=== PATIENT | male | born 1990 | race Caucasian/White ===

== ENCOUNTER → 2017-05-09 | Outpatient (CLI) | payer OTHER ==
--- NOTE | 2017-05-09 13:11 | MR ---
EXAMINATION TYPE: MR lumbar spine wo con DATE OF EXAM: 05/09/2017 COMPARISON: NONE HISTORY: 26-year-old male with low back pain TECHNIQUE: Multiplanar, multisequence images of the lumbar spine were acquired. FINDINGS: While there is straightening of the normal lumbar lordosis, alignment is maintained. Vertebral body h eights are preserved. Slightly diminished marrow signal suggestive of prominent red marrow compatible with patient's young age. Conus medullaris is normal. There is premature degenerative disc disease from L3 through S1 levels with variable mild disc desicc ation and bulging discs. Disc desiccation and mild disc height loss is greatest at L4-L5 and L5-S1. These changes are superimposed on underlying mild congenital spinal canal stenosis with AP canal dime nsion of 1.1 cm. At T12-L1, no significant spinal canal or neuroforaminal stenosis. L1-L2, minimal posterior disc bulge without significant canal or foraminal stenosis. At L2-L3, no significant canal or foraminal stenosis. At L3-L4, there is a large central, left paracentral disc protrusion. This contributes to moderate sp inal canal stenosis without neuroforaminal stenosis. At L4-L5, there is central disc protrusion with tiny posterior annular fissure. Changes result in mil d to moderate spinal canal stenosis with minimal inferior neural foraminal narrowing on the right. At L5-S1, there is mild facet degenerative change and diffuse disc bulge with a superimposed broad-ba sed left intraforaminal component containing an annular fissure. While there is no significant spinal canal stenosis, changes result in mild left neuroforaminal stenosis and disc material closely approa ches and may abut the traversing left S1 nerve root. No prevertebral or paravertebral soft tissue abnormality seen. IMPRESSION: 1. Premature degenerative disc disease especially from L3 through S1 levels with the greatest disc de siccation at both L4-L5 and L5-S1. Annular fissures are present at both L4-L5 and L5-S1. 2. Changes are superimposed on congenital spinal canal narrowing. The left paracentral herniation at L3-L4 contributes to a moderate overall spinal canal stenosis. 3. There is mild to moderate overall spinal canal stenosis at L4-L5. 4. There is a broad-based left intraforaminal disc protrusion at L5-S1 at the site of annular fissure . Disc material closely approaches and may abut the traversing left S1 nerve root here. Mild left vanesa roforaminal stenosis.
== END | disposition home or self-care (01) ==
LOC: RADMRIMAIN 10:49
PROVIDERS: ATTEND Physician Assistant Medical
DX: M48.06 Spinal stenosis, lumbar region (principal); M99.73 Connective tissue and disc stenosis of intervertebral foramina of lumbar region; M51.17 Intervertebral disc disorders with radiculopathy, lumbosacral region
CPT/HCPCS: 72148

== ENCOUNTER → 2017-07-08 | Outpatient (CLI) | payer OTHER ==
[2017-07-03 14:59] VITALS: BMI 31.8
[2017-07-08 12:35] VITALS: BP 122/84; PULSE 84; RESP 18; TEMP 98.4
--- NOTE | 2017-07-08 13:14 | P.CONS ---
History of Present Illness - Reason for Consult Consult date: 07/08/17 - Chief Complaint Lower back pain - History of Present Illness This is a 27-year-old male with 1 year history of lower back pain that started with no precipitating events. The patient admits to heavy lifting and body building for the last 10 years of his life. His pain goes across his lower back more on the right side than the left side and then it radiates down both legs to the knee level but he denies any numbness or tingling in the lower extremities. He also denies any weakness or any bowel or bladder dysfunction. He has been trying to lose some weight lately. He also tried physical therapy 3 or 4 months ago which did not give her any pain relief. The patient thinks that he had some injections in his lower back when he was 18 years old. His pain gets worse with any activity especially walking and lifting he uses heat and cold pads on his back to help him with the pain and uses Motrin 800 mg as needed. He also tried Nitro and Valium for a few months and last time he took them was about 2 months ago. He lives with his parents he smokes half a pack of cigarettes a day he denies using any marijuana or any street drugs. He is unemployed at this time. He used to work in [employer]. His lumbar spine MRI showed premature degenerative disc disease especially from L3 to S1 with greatest disc desiccation at L4 5 and L5-S1 levels there is also left paracentral disc herniation at L3 4 level and left disc protrusion at L5- S1 abutting the left S1 nerve root with moderate spinal canal stenosis at L4 5 and L3 4 and L5-S1 levels. Past Medical History Past Medical History: Musculoskeletal Disorder Additional Past Medical History / Comment(s): back pain radiating down legs History of Any Multi-Drug Resistant Organisms: None Reported Past Surgical History: Appendectomy, Orthopedic Surgery Additional Past Surgical History / Comment(s): cyst removed from tailbone, finger surgery Past Anesthesia/Blood Transfusion Reactions: No Reported Reaction Past Psychological History: Anxiety Smoking Status: Current every day smoker Past Alcohol Use History: Occasional Additional Past Alcohol Use History / Comment(s): has smoked since 16 yrs old 1 ppd Past Drug Use History: None Reported - Past Family History Mother Family Medical History: No Reported History Father Family Medical History: Unable to Obtain Medications and Allergies Home Medications Medication Instructions Recorded Confirmed Type Multivitamin [Multivitamins Adult 2 tab PO DAILY 07/04/16 07/03/17 History Gummies] Allergies Allergy/AdvReac Type Severity Reaction Status Date / Time No Known Allergies Allergy Verified 07/03/17 14:54 Physical Exam Vitals: Vital Signs Temp Pulse Resp BP Pulse Ox 07/08/17 12:23 98.4 F 84 18 122/84 94 L - Psychiatric Psychiatric: A&O x's 3, appropriate affect, intact judgment & insight Neuro exam of the lower extremities showed normal muscle strength bilaterally and symmetrically absent right ankle reflex compared to the left side and normal bilateral knee reflex is. Straight leg raise test negative bilaterally facet loading test was positive on both sides. He has tenderness in the lumbar paravertebral area. There is no tenderness in the sacroiliac joints bilaterally. He has decreased range of motion of the lumbar spine to flexion with more pain with flexion than with extension. Assessment and Plan Plan: This is a 27-year-old male with lower back pain and radiation to the lower extremities down to the knees bilaterally with no paresthesia in the lower extremities and no other neurologic changes except for absent right ankle reflex. The MRI of the lumbar spine showed premature these 2 changes and moderate lumbar stenosis. The patient failed to respond to physical therapy previously. At this point I will schedule the patient to have lumbar epidural steroid injection under fluoroscopic guidance and if these injections don't help his pain then we'll plan on doing lumbar medial branch block in the future. The patient understands that it is not recommended to use opioids for his chronic nonmalignant pain especially because of his young age, and all attempts will be taken to avoid using opioids.
== END | disposition home or self-care (01) ==
LOC: PNWHC3 12:16
PROVIDERS: ATTEND Anesthesiology
DX: M48.06 Spinal stenosis, lumbar region (principal); F17.200 Nicotine dependence, unspecified, uncomplicated; F41.9 Anxiety disorder, unspecified; Z79.899 Other long term (current) drug therapy
CPT/HCPCS: 99211

== ENCOUNTER 2017-07-23 07:12 | Day surgery (SDC) | payer OTHER ==
[2017-07-20 16:52] VITALS: BMI 31.8
[~2017-07-23 07:12] MED LIST: LACTATED RINGERS 1,000 ML IV SCH
[2017-07-23 07:26] VITALS: TEMP 98.7
[2017-07-23] MEDS ORDERED: LIDOCAINE 1% 20 ML VIAL (10MG/ML) FOR IV START INTRADERMA ONE (07:42)
--- NOTE | 2017-07-23 08:36 | P.PCN ---
Date of Procedure: 07/23/17 Preoperative Diagnosis: Lumbar stenosis Lumbar degenerative disc disease Postoperative Diagnosis: Same as above Procedure(s) Performed: Lumbar epidural steroid injection under fluoroscopic guidance Anesthesia: MAC (Moderate conscious sedation with IV fentanyl and Versed) Surgeon: Elma Sharma Pathology: none sent Condition: stable Disposition: PACU Description of Procedure: The patient was seen in preoperative holding area consent was obtained then he was brought into the procedure 1 placed in prone position. Skin was prepped with Betadine 3 and draped in a sterile manner. Lidocaine 1% was used to numb the skin over the target point was at the L4-5 level in the right paramedian approach. I used 20-gauge 3-1/2 inch Touhy epidural needle with loss-of- resistance to air to identify the epidural space. There was positive loss-of- resistance to air at about 7 cm from skin ,negative aspiration for any CSF or blood ,negative paresthesia I then injected 80 mg of Kenalog +2 MLS of Marcaine 0.25% +3 MLS of preservative free normal saline to a total volume of 7 MLS in epidural space. Patient tolerated procedure well.
[2017-07-23] MEDS ORDERED: IV FLUID CONTINUATION 1,000 ML IV ONE (08:43)
--- NOTE | 2017-07-23 08:46 | FL ---
EXAMINATION TYPE: FL guided pain mgmt statistic DATE OF EXAM: 07/23/2017 COMPARISON: NONE HISTORY: Pain TECHNIQUE: Fluoroscopy. FINDINGS/IMPRESSION: Fluoroscopic guidance was provided during procedure performed by Dr. Sharma. A total of 3 seconds of fluoroscopic time was utilized during the procedure.
[2017-07-23 08:57] VITALS: BP 117/65; PULSE 72; RESP 18
== END 2017-07-23 09:08 | disposition home or self-care (01) ==
LOC: ORPAIN 07:12
PROVIDERS: ATTEND Anesthesiology
DX: M48.06 Spinal stenosis, lumbar region (principal); M51.36 Other intervertebral disc degeneration, lumbar region
CPT/HCPCS: 62323; J2250; J3301; Q9965; J3010; 99152

== ENCOUNTER 2018-07-14 00:50 | Observation (INO) | payer OTHER ==
[2018-07-14] MEDS ORDERED: ONDANSETRON 4 MG/2 ML VIAL IVP STA (01:18)
[2018-07-14] MEDS ORDERED: SODIUM CHLORIDE 0.9% 1,000 ML IV STA ×2 (01:18)
[2018-07-14] MEDS ORDERED: PANTOPRAZOLE 40 MG/10 ML VIAL IVP STA (01:19)
[2018-07-14 01:59] LABS: Basophils % (A) 0 %; Eosinophils % (A) 0 %; HCT 53.4 % (39.0-53.0); HGB 18.6 gm/dL (13.0-17.5); Lymphocytes # (A) 1.2 k/uL (1.0-4.8); Lymphocytes % (A) 9 %; MCH 31.5 pg (25.0-35.0); MCHC 34.8 g/dL (31.0-37.0); MCV 90.5 fL (80.0-100.0); Mean Platelet Volume 6.8; Monocytes # (A) 0.8 k/uL (0-1.0); Monocytes % (A) 6 %; Neutrophils # (A) 11.5 k/uL (1.3-7.7); Neutrophils % (A) 84 %; Platelet Count 339 k/uL (150-450); RDW 13.1 % (11.5-15.5); WBC 13.6 k/uL (3.8-10.6)
[2018-07-14 02:03] LABS: Albumin 5.7 g/dL (3.5-5.0); Calcium 10.5 mg/dL (8.4-10.2); Potassium 4.5 mmol/L (3.5-5.1); Total Bilirubin 0.7 mg/dL (0.2-1.3); Total Protein 10.2 g/dL (6.3-8.2)
[2018-07-14] MEDS ORDERED: SODIUM CHLORIDE 0.9% 1,000 ML IV ONE (02:23)
[2018-07-14] MEDS ORDERED: MORPHINE SULFATE 4 MG/ML SYRINGE IVP STA (02:23)
--- NOTE | 2018-07-14 02:29 | ED ---
Nausea/Vomiting/Diarrhea HPI - General Source: patient, RN notes reviewed, old records reviewed Mode of arrival: ambulatory Limitations: no limitations <Candy Hancock - Last Filed: 07/14/18 03:24> <Ayden Andrew - Last Filed: 07/14/18 03:52> - General Chief complaint: Nausea/Vomiting/Diarrhea Stated complaint: Vomiting Time Seen by Provider: 07/14/18 01:11 - History of Present Illness Initial comments: Patient is 20-year-old male presents emergency Department chief complaint of epigastric abdominal pain radiating towards his back for the past 2 days. Patient reports that and or worse amounts of vomiting. Patient reports no bloody stools. Or bloody emesis. He states that he has had very little urine output today. He denies any fevers or chills. He reports his body just aches. (Candy Hancock) - Related Data Home Medications Medication Instructions Recorded Confirmed Multivitamin [Multivitamins Adult 2 tab PO DAILY 07/04/16 07/23/17 Gummies] Allergies Allergy/AdvReac Type Severity Reaction Status Date / Time No Known Allergies Allergy Verified 07/14/18 01:03 Review of Systems ROS Other: All systems not noted in ROS Statement are negative. <Candy Hancock - Last Filed: 07/14/18 03:24> ROS Other: All systems not noted in ROS Statement are negative. <Ayden Andrew - Last Filed: 07/14/18 03:52> ROS Statement: Those systems with pertinent positive or pertinent negative responses have been documented in the HPI. Past Medical History Past Medical History: Musculoskeletal Disorder Additional Past Medical History / Comment(s): back pain radiating down legs History of Any Multi-Drug Resistant Organisms: None Reported Past Surgical History: Appendectomy, Orthopedic Surgery Additional Past Surgical History / Comment(s): cyst removed from tailbone, finger surgery Past Anesthesia/Blood Transfusion Reactions: No Reported Reaction Past Psychological History: Anxiety Smoking Status: Current every day smoker Past Alcohol Use History: Occasional Past Drug Use History: None Reported - Past Family History Mother Family Medical History: No Reported History Father Family Medical History: Unable to Obtain <Candy Hancock - Last Filed: 07/14/18 03:24> General Exam Limitations: no limitations General appearance: alert, in no apparent distress Head exam: Present: atraumatic, normocephalic, normal inspection Eye exam: Present: normal appearance, PERRL, EOMI. Absent: scleral icterus, conjunctival injection, periorbital swelling ENT exam: Present: normal exam, mucous membranes moist Neck exam: Present: normal inspection. Absent: tenderness, meningismus, lymphadenopathy Respiratory exam: Present: normal lung sounds bilaterally. Absent: respiratory distress, wheezes, rales, rhonchi, stridor Cardiovascular Exam: Present: regular rate, normal rhythm, normal heart sounds. Absent: systolic murmur, diastolic murmur, rubs, gallop, clicks GI/Abdominal exam: Present: soft, tenderness (Epigastric and right upper quadrant tenderness.), normal bowel sounds. Absent: distended, guarding, rebound, rigid Extremities exam: Present: normal inspection, full ROM, normal capillary refill. Absent: tenderness, pedal edema, joint swelling, calf tenderness Back exam: Present: normal inspection Neurological exam: Present: alert, oriented X3, CN II-XII intact <Candy Hancock - Last Filed: 07/14/18 03:24> <Ayden Andrew - Last Filed: 07/14/18 03:52> - General Exam Comments Initial Comments: 20-year-old male. Patient appears in moderate discomfort. (Candy Hancock) Vital Signs 07/14/18 01:01 Temperature 98.3 F Pulse Rate 125 H Respiratory 18 Rate Blood Pressure 128/85 O2 Sat by Pulse 98 Oximetry Medical Decision Making - Lab Data Result diagrams: 07/14/18 01:26 07/14/18 01:26 <Candy Hancock - Last Filed: 07/14/18 03:24> - Lab Data Result diagrams: 07/14/18 01:26 07/14/18 01:26 <Ayden Andrew - Last Filed: 07/14/18 03:52> - Medical Decision Making Patient is an [id number] male presents emergency department 2 days of vomiting , and epigastric abdominal pain. He reports that he has severe acid reduction. At this time Patient initially was reevaluated and showed no significant pain or tenderness on exam. On reevaluation after informing Patient of his lab results Patient was writhing around in pain. We did do a computed tomography scan without contrast. This was negative for any acute disease. Patient's labwork discharge evidence of mild leukocytosis with 13,000. Due to this patient's severe vomiting he has a acute kidney injury with elevated creatinine 2.52. GFR is a 33. This is dramatically increased from patient's previous lab work here in the emergency department. Patient has been given 2 L bolus. He is feeling better after receiving nausea medication, Protonix and a short dose of pain medicine. This time I discussed patient's likely suffering from gastritis possibility of ulcer. Patient will be hypertonic saline IV fluids. We'll recheck kidney function the morning. Dr. Conway discussed the case with Dr. Goldstein. (Candy Hancock) I saw this patient in conjunction with the physician hr administrative assistant. I performed independent history and physical exam. Agree with case management. (Ayden Andrew) - Lab Data Lab Results 07/14/18 07/14/18 Range/Units 01:26 01:26 WBC 13.6 H (3.8-10.6) k/uL RBC 5.90 (4.30-5.90) m/uL Hgb 18.6 H (13.0-17.5) gm/dL Hct 53.4 H (39.0-53.0) % MCV 90.5 (80.0-100.0) fL MCH 31.5 (25.0-35.0) pg MCHC 34.8 (31.0-37.0) g/dL RDW 13.1 (11.5-15.5) % Plt Count 339 (150-450) k/uL Neutrophils % 84 % Lymphocytes % 9 % Monocytes % 6 % Eosinophils % 0 % Basophils % 0 % Neutrophils # 11.5 H (1.3-7.7) k/uL Lymphocytes # 1.2 (1.0-4.8) k/uL Monocytes # 0.8 (0-1.0) k/uL Eosinophils # 0.0 (0-0.7) k/uL Basophils # 0.0 (0-0.2) k/uL Sodium 142 (137-145) mmol/L Potassium 4.5 (3.5-5.1) mmol/L Chloride 105 (98-107) mmol/L Carbon Dioxide 17 L (22-30) mmol/L Anion Gap 20 mmol/L BUN 25 H (9-20) mg/dL Creatinine 2.52 H (0.66-1.25) mg/dL Est GFR (CKD-EPI)AfAm 39 (>60 ml/min/1.73 sqM) Est GFR (CKD-EPI)NonAf 33 (>60 ml/min/1.73 sqM) Glucose 109 H (74-99) mg/dL Calcium 10.5 H (8.4-10.2) mg/dL Total Bilirubin 0.7 (0.2-1.3) mg/dL AST 19 (17-59) U/L ALT 39 (21-72) U/L Alkaline Phosphatase 71 (38-126) U/L Total Protein 10.2 H (6.3-8.2) g/dL Albumin 5.7 H (3.5-5.0) g/dL Amylase 69 (30-110) U/L Lipase 66 (23-300) U/L Disposition Is patient prescribed a controlled substance at d/c from ED?: No Time of Disposition: 03:26 <Candy Hancock - Last Filed: 07/14/18 03:24> <Ayden Andrew - Last Filed: 07/14/18 03:52> Clinical Impression: DEE (acute kidney injury), Vomiting Disposition: ADMITTED IP TO THIS HOSP Condition: Stable
--- NOTE | 2018-07-14 03:01 | CT ---
EXAMINATION TYPE: CT abdomen pelvis wo con DATE OF EXAM: 07/14/2018 COMPARISON: 10/18/2013 HISTORY: Prior on synapse 2012, gen body aches with nausea and vomiting, renal stone protocol CT DLP: 709.00 mGycm Automated exposure control for dose reduction was used. TECHNIQUE: Helical acquisition of images was performed from the lung bases through the pelvis. FINDINGS: Lung bases are clear of infiltrate. There is no pleural effusion. Heart size is normal. Liver and spleen appear normal. Bile ducts are not dilated. Gallbladder is distended and measures 4.5 cm. There is no evidence of a pancreatic mass. The bile ducts are not dilated. There is no adrenal mass. Kidneys have normal size and contour. There is no hydronephrosis. Ureters a re not dilated. There is no retroperitoneal adenopathy. There is no ascites. Bladder distends smoothl y. There is no evidence of a pelvic mass. There is no intestinal wall thickening. There are no dilate d loops. There is no evidence of appendicitis. Appendix is not seen. Lumbar spine is intact. Appendix as being apparently removed since last exam. IMPRESSION: NEGATIVE CT SCAN OF THE ABDOMEN AND PELVIS. NO EVIDENCE OF RENAL STONE OR OBSTRUCTION. THERE IS CLEAR ING OF THE RIGHT LOWER QUADRANT INFLAMMATORY CHANGES COMPARED TO OLD EXAM.
[2018-07-14] MEDS ORDERED: ACETAMINOPHEN TAB 325 MG TAB PO PRN (03:26)
[2018-07-14] MEDS ORDERED: HYDROmorphone 0.5 MG/0.5 ML SYRINGE IVP PRN (03:26)
[2018-07-14] MEDS ORDERED: NALOXONE 0.4 MG/ML 1 ML VIAL IV PRN (03:26)
[2018-07-14 04:40] VITALS: BMI 31.9
[2018-07-14] MEDS: SODIUM CHLORIDE 0.9% 1,000 ML IV SCH ×3 (04:46→20:53)
[2018-07-14] MEDS: HYDROmorphone 1 MG/ML 1 ML SYRINGE IVP PRN ×2 (06:17→17:09)
[2018-07-14] MEDS: PANTOPRAZOLE 40 MG/10 ML VIAL IV SCH (08:44)
[2018-07-14] MEDS: MORPHINE SULFATE 4 MG/ML SYRINGE IV PRN ×3 (08:44→20:52)
[2018-07-14] MEDS: ONDANSETRON 4 MG/2 ML VIAL IVP PRN (13:21)
--- NOTE | 2018-07-14 18:13 | HP ---
HISTORY AND PHYSICAL CHIEF COMPLAINT: Intractable nausea and vomiting. HISTORY OF PRESENT ILLNESS: This is the first known admission for this 28-year-old white male. He started having nausea and vomiting without diarrhea. He had no hematemesis, melena, fever, chills, abdominal pain, etc. He came to the emergency room where his creatinine was elevated and it was felt that this was likely related to dehydration, but should be managed with IV fluids. His creatinine was 2.52 with a BUN of 25. [place] [address]. The rest of his studies were unremarkable. REVIEW OF SYSTEMS: She has had no headaches, neurologic problems, change in vision or hearing, cough, hemoptysis, sputum production, chest pain, palpitations, syncope, urinary complaints, frequency, urgency, renal failure, diabetes, etc. Past medical history, family history, personal and social history are unremarkable and noncontributory otherwise. He is not allergic to any medication. Laboratory-shwa, [place] [address] and BUN and creatinine were already mentioned. PHYSICAL EXAM: Blood pressure 132/81, pulse 72, respirations 14 and temperature 97.8. In general he appeared to be well developed, well nourished, no acute distress. Skin color is normal. Skin is warm, dry. Lymph nodes not enlarged. Head, ears, eyes, nose, mouth, and throat were normal. Neck veins not distended. Thyroid is not enlarged. Chest is clear. Cardiac exam is normal. Abdomen is soft, nontender. Extremities are normal. IMPRESSION: 1. Probable viral gastroenteritis. 2. Dehydration. 3. Prerenal azotemia. PLAN: 1. Bed rest. 2. IV fluids. 3. Antiemetics. 4. Follow renal function as he is rehydrating. MMODL / IJN: [id number] /
[2018-07-14 21:25] LABS: Appearance,Urine Clear (Clear); Bilirubin,Urine Negative (Negative); Blood,Urine Negative (Negative); Color,Urine Yellow; Glucose,Urine (UA) Negative (Negative); Ketones,Urine 1+ (Negative); Leukocyte Esterase,Urine Negative (Negative); Nitrite,Urine Negative (Negative); Protein,Urine Trace (Negative); Urobilinogen,Urine <2.0 mg/dL (<2.0)
[2018-07-15] MEDS: HYDROmorphone 1 MG/ML 1 ML SYRINGE IVP PRN ×2 (00:13→08:25)
[2018-07-15] MEDS: SODIUM CHLORIDE 0.9% 1,000 ML IV SCH ×3 (05:08→23:29)
[2018-07-15] MEDS: MORPHINE SULFATE 4 MG/ML SYRINGE IV PRN ×2 (05:08→13:34)
[2018-07-15] MEDS: PANTOPRAZOLE 40 MG/10 ML VIAL IV SCH (08:13)
[2018-07-15] MEDS: ONDANSETRON 4 MG/2 ML VIAL IVP PRN (08:13)
[2018-07-15 08:57] LABS: Basophils % (A) 1 %; Eosinophils # (A) 0.1 k/uL (0-0.7); Eosinophils % (A) 1 %; HCT 42.9 % (39.0-53.0); Lymphocytes # (A) 2.1 k/uL (1.0-4.8); Lymphocytes % (A) 27 %; MCH 30.3 pg (25.0-35.0); MCHC 32.7 g/dL (31.0-37.0); MCV 92.8 fL (80.0-100.0); Mean Platelet Volume 6.6; Monocytes # (A) 0.4 k/uL (0-1.0); Monocytes % (A) 5 %; Neutrophils # (A) 5.1 k/uL (1.3-7.7); Neutrophils % (A) 65 %; Platelet Count 251 k/uL (150-450); RBC 4.62 m/uL (4.30-5.90); RDW 13.1 % (11.5-15.5); WBC 7.9 k/uL (3.8-10.6)
[2018-07-15 09:13] LABS: Anion Gap 10 mmol/L; Blood Urea Nitrogen 17 mg/dL (9-20); Carbon Dioxide 21 mmol/L (22-30); Chloride 109 mmol/L (98-107); Glucose 96 mg/dL (74-99); Potassium 3.8 mmol/L (3.5-5.1); Sodium 140 mmol/L (137-145)
--- NOTE | 2018-07-15 13:33 | CDI ---
Last Revision, October 2017 Documentation Clarification Form Date: 07/15/2018 1:08:30 PM From: Sabiha Meyers RN, CCDS Admit Date: 07/14/2018 3:20:00 AM Patient Name: Sam Burdick Visit Number: [id number] Discharge Date: ATTENTION: The Clinical Documentation Specialists (CDI) and [facility] Coding Staff appreciate your assistance in clarifying documentation. Please respond to the clarification below the line at the bottom and electronically sign. The CDI & [facility] Coding staff will review the response and follow-up if needed. Please note: Queries are made part of the Legal Health Record. If you have any questions, please contact the author of this message via ITS. Dr. LIU, Denzel Hwang MD Acute kidney injury was documented in the Emergency Department clinical impression. History/Risk Factors: Back Pain, Current every day smoker, Admission BUN 25, CR 2.52 GFR 33 (dramatically increased from previous labs work in ED) Current BUN 17, Cr 0.92, GFR >90 Clinical Indicators: Present with complaints of epigastric abdominal pain right upper quadrant tenderness, with very urine output today, nausea and vomiting for 2 days. Treatment: IV 2L bolus IV Fluids @ 120 mls/hr Zofran IV Protonix PO Monitor Labs In order to capture the severity of condition, please clarify if the condition signifies: Acute kidney injury Other, please specify Unable to determine Please continue to document in your progress notes and discharge summary in order to capture severity of illness and risk of mortality. Include clinical findings that support your diagnosis. MTDD
[2018-07-15] MEDS ORDERED: KETOROLAC 30 MG/ML 1 ML VIAL IVP PRN (16:08)
[2018-07-15 20:23] VITALS: RESP 18
[2018-07-16 05:41] VITALS: BP 124/63; PULSE 77; TEMP 98.6
[2018-07-16] MEDS: PANTOPRAZOLE 40 MG/10 ML VIAL IV SCH (08:02)
[2018-07-16] MEDS: ONDANSETRON 4 MG/2 ML VIAL IVP PRN (08:02)
[2018-07-16] MEDS: SODIUM CHLORIDE 0.9% 1,000 ML IV SCH (08:02)
--- NOTE | 2018-07-19 21:26 | MISC ---
MISCELLANOUS REPORT QUERY: The answer is acute kidney injury secondary to dehydration or prerenal azotemia. MMODL / IJN: [id number] /
--- NOTE | 2018-07-21 17:53 | DS ---
DISCHARGE SUMMARY CHIEF COMPLAINT: Nausea, vomiting, diarrhea, dehydration and renal failure. HISTORY OF PRESENT ILLNESS AND PHYSICAL EXAM: Details of this man's history and physical can be found in the initial workup. LABORATORY STUDIES: While he was in the hospital he had laboratory studies, details of which can be found in the laboratory section of his chart. COURSE IN THE HOSPITAL: After admission, he was placed in bedrest, started on intravenous fluids and rehydrated and his BUN and creatinine started to come down. He was doing well on the and was requesting more pain medication and he was told this was not necessary and that he would be discharged soon. He then decided to be discharged that day. FINAL DIAGNOSES: 1. Gastroenteritis with dehydration. 2. Prerenal azotemia. OPERATION: None. CONSULTATION: None. He is improved. ART / LIUDMILA: [id number] /
--- NOTE | 2018-07-28 15:18 | PN ---
PROGRESS NOTE DATE OF SERVICE: 07/15/2018 CHIEF COMPLAINT: Dehydration and prerenal azotemia. HISTORY OF PRESENT ILLNESS: This gentleman is doing better. Nausea and vomiting have stopped. PHYSICAL EXAM: Chest is clear. The cardiac exam is normal. Abdomen is soft, nontender. IMPRESSION: 1. Viral gastroenteritis with dehydration and prerenal azotemia. 2. Repeat labs and renal function is improving. Will increase his diet and activity. MMODL / IJN: [id number] /
--- NOTE | 2018-07-28 17:09 | DS ---
DISCHARGE SUMMARY DATE OF DISCHARGE: 07/16/2018 CHIEF COMPLAINT: Nausea, vomiting, diarrhea and elevated renal function studies. HISTORY OF PRESENT ILLNESS AND PHYSICAL EXAMINATION: Details of this man's history and physical can be found in the initial workup. LABORATORY STUDIES: While he was in the hospital he had laboratory studies, details of which can be found in the laboratory section of his chart. COURSE IN THE HOSPITAL: After admission he was placed in bedrest, started on intravenous fluids. Renal function was followed. BUN and creatinine were starting to come into range. He was complaining of a crampy abdominal pain and wanted narcotics, but when he was offered non-narcotic analgesics, he decided he felt better and wanted to go home. He will follow up in the office. FINAL DIAGNOSES: 1. Viral gastroenteritis. 2. Dehydration. 3. Prerenal azotemia. OPERATIONS: None. CONSULTATIONS: None. He is improved. ART / LIUDMILA: [id number] /
== END 2018-07-16 12:10 | disposition home or self-care (01) ==
LOC: EC 00:50 → 5MS5E 03:20 → INTOOBSV 03:20 → UNDODISIN 07-16 12:10
PROVIDERS: ADMIT Family Medicine; ATTEND Family Medicine
DX: A08.4 Viral intestinal infection, unspecified (principal); E86.0 Dehydration; R79.89 Other specified abnormal findings of blood chemistry; F17.200 Nicotine dependence, unspecified, uncomplicated; F41.9 Anxiety disorder, unspecified; Z90.89 Acquired absence of other organs
CPT/HCPCS: 96376 ×3; 96361 ×3; 96375 ×3; 96374; 99285; 36415; 80053; 80048; 82150; 83690; 85025 ×2; 81003; 74176; G0378 ×3; J2270 ×2; J2405 ×3; J1885; J1170 ×2; C9113 ×3

== ENCOUNTER → 2020-01-16 | Outpatient (CLI) | payer OTHER | END | disposition home or self-care (01) ==

== ENCOUNTER 2020-03-15 22:23 | Emergency (ER) | payer OTHER ==
[2020-03-15 22:34] VITALS: BP 127/81; PULSE 114; RESP 20; TEMP 98.7
--- NOTE | 2020-03-15 23:45 | ED ---
Psych HPI - General Chief Complaint: Psychiatric Symptoms Stated Complaint: Arm Laceration, Psych Time Seen by Provider: 03/15/20 23:09 Source: patient Mode of arrival: ambulatory - History of Present Illness Initial Comments: Patient is a 29-year-old male with history of anxiety and depression presenting to the emergency room with a chief complaint of laceration. Patient states his coping mechanism is cutting his left upper extremity. States he has been doing this since he was 13 years old. States he is under a lot of stress because his brother moved in with him and his parents along with their children. States he is increasingly more frustrated. States he attempted to cut himself and is concerned that he cut himself little too deep. Reports tetanus is up-to-date. States he would like to speak with the psychiatric staff only if he does not have to wait more than 1 hour. Denies any suicidal thoughts or ideations. He voluntarily came to the ED. Not petition. - Related Data Home Medications Medication Instructions Recorded Confirmed Diazepam [Valium] 5 mg PO BID PRN 07/14/18 07/14/18 Ibuprofen 800 mg PO QID PRN 07/14/18 07/14/18 PARoxetine HCL 40 mg PO DAILY 07/14/18 07/14/18 Allergies Allergy/AdvReac Type Severity Reaction Status Date / Time No Known Allergies Allergy Verified 03/15/20 22:34 Review of Systems ROS Statement: Those systems with pertinent positive or pertinent negative responses have been documented in the HPI. ROS Other: All systems not noted in ROS Statement are negative. Past Medical History Past Medical History: Musculoskeletal Disorder Additional Past Medical History / Comment(s): back pain radiating down legs History of Any Multi-Drug Resistant Organisms: None Reported Past Surgical History: Appendectomy, Orthopedic Surgery Additional Past Surgical History / Comment(s): cyst removed from tailbone, finger surgery Past Anesthesia/Blood Transfusion Reactions: No Reported Reaction Past Psychological History: Anxiety, Depression Smoking Status: Current every day smoker Past Alcohol Use History: Occasional Past Drug Use History: Marijuana - Past Family History Mother Family Medical History: No Reported History Father Family Medical History: Unable to Obtain General Exam Limitations: no limitations General appearance: alert, in no apparent distress Head exam: Present: atraumatic, normocephalic, normal inspection Eye exam: Present: normal appearance, PERRL, EOMI Pupils: Present: normal accommodation ENT exam: Present: normal exam Neck exam: Present: normal inspection, full ROM Respiratory exam: Present: normal lung sounds bilaterally Cardiovascular Exam: Present: regular rate, normal rhythm, normal heart sounds Extremities exam: Present: full ROM, normal capillary refill, other (+2 ulnar and radial pulses bilaterally.). Absent: normal inspection (Multiple superficial lacerations to the left upper extremity. When larger laceration measuring approximately 4 cm in length.) Back exam: Present: normal inspection, full ROM Neurological exam: Present: alert, oriented X3 Psychiatric exam: Present: normal affect, normal mood Skin exam: Present: warm, dry, intact Course Vital Signs 03/15/20 22:28 Temperature 98.7 F Pulse Rate 114 H Respiratory 20 Rate Blood Pressure 127/81 O2 Sat by Pulse 97 Oximetry Procedures - Laceration Laceration #1 Consent Obtained: verbal consent Indication: laceration Site: hand Size (cm): 3 Description: linear, clean Depth: simple, single layer Sedation/Analgesia: none Anesthetic Used: lidocaine 1% Anesthesia Technique: local infiltration Amount (mls): 5 Pre-repair: irrigated extensively Type of Sutures: nylon Size of Sutures: 4-0 Number of Sutures: 5 Technique: simple, interrupted Patient Tolerated Procedure: well, no complications Medical Decision Making - Medical Decision Making Patient is a 29-year-old male with history of self-harm presenting to the emergency department for psychiatric evaluation. Patient had increased levels of stress as of recently. He typically puts his left upper extremity ever since he was a child. He made a laceration that was slightly diverting usual so he came to the ED for evaluation. Patient is declining psychiatric evaluation by the psychiatric staff. He does appear to have a laceration on the posterior aspect of his hand which was repaired with 5 sutures. Patient tolerated the procedure well. His tetanus is up-to-date. Return parameters thoroughly discussed the patient is understanding and agreeable. Advised to follow-up with his counselor. Case discussed with physician. Disposition Clinical Impression: Laceration, Adjustment reaction of adult life Disposition: HOME SELF-CARE Condition: Good Instructions (If sedation given, give patient instructions): Care For Your Stitches (DC), Laceration (DC) Additional Instructions: Follow proper wound care instructions. Return to emergency department in 7 days for suture removal. Is patient prescribed a controlled substance at d/c from ED?: No Referrals: Denzel Goldstein MD [Primary Care Provider] - 1-2 days Time of Disposition: 23:45
[2020-03-16] MEDS ORDERED: clonazePAM 1 MG TAB PO ONE
== END 2020-03-16 00:22 | disposition home or self-care (01) ==
LOC: EC 22:23
DX: S41.112A Laceration without foreign body of left upper arm, initial encounter (principal); F41.8 Other specified anxiety disorders; F43.20 Adjustment disorder, unspecified; F17.200 Nicotine dependence, unspecified, uncomplicated; Z79.899 Other long term (current) drug therapy; X78.9XXA Intentional self-harm by unspecified sharp object, initial encounter
CPT/HCPCS: 82075; 99283

== ENCOUNTER 2020-03-17 16:41 | Emergency (ER) | payer OTHER ==
[2020-03-17 16:49] VITALS: BP 138/92; PULSE 108; RESP 18; TEMP 98
[2020-03-17] MEDS ORDERED: ONDANSETRON 4 MG/2 ML VIAL IVP STA (17:02)
[2020-03-17] MEDS ORDERED: SODIUM CHLORIDE 0.9% 1,000 ML IV STA (17:02)
[2020-03-17] MEDS ORDERED: KETOROLAC 30 MG/ML 1 ML VIAL IVP STA (17:02)
[2020-03-17] MEDS ORDERED: LIDOCAINE 5% PATCH TOPICAL STA (17:04)
[2020-03-17] MEDS ORDERED: CYCLOBENZAPRINE 10 MG TAB PO STA (17:04)
[2020-03-17] MEDS ORDERED: FAMOTIDINE 20 MG/2 ML VIAL IV STA (17:05)
--- NOTE | 2020-03-17 17:13 | ED ---
General Adult HPI - General Chief complaint: Abdominal Pain Stated complaint: Abd Pain Source: patient Mode of arrival: ambulatory Limitations: no limitations - History of Present Illness Initial comments: Patient is a 29-year-old male with history of chronic back pain presenting to the emergency department with multiple chief complaints. Patient states for over a month he has developed increased left paraspinal pain in the lumbar region and radiates distally along the left lower extremity to the knee. Patient reports this is an ongoing issue but has been progressively worse. Patient states he saw his primary care who told him to "tough it out". Patient reports taking [id number] analgesics minimal improvement. Denies any numbness or tingling. Denies any saddle anesthesia, urinary or bowel incontinence. Patient is also presenting today with some epigastric abdominal pain without any radiation. States the pain is constant and not related to by mouth intake. Does report nausea but no vomiting or diarrhea. Denies any night sweats fevers or chills. States he has been having bowel movements and baseline. Does have surgical history of appendectomy. Denies hematuria, hematochezia or melena. Denies any testicular pain, swelling or penile discharge. Patient does report drinking one usual for the past 2 days. - Related Data Home Medications Medication Instructions Recorded Confirmed Diazepam [Valium] 5 mg PO BID PRN 07/14/18 07/14/18 Ibuprofen 800 mg PO QID PRN 07/14/18 07/14/18 PARoxetine HCL 40 mg PO DAILY 07/14/18 07/14/18 Allergies Allergy/AdvReac Type Severity Reaction Status Date / Time ketorolac [From Toradol] Allergy Anaphylaxis Verified 03/17/20 17:56 Review of Systems ROS Statement: Those systems with pertinent positive or pertinent negative responses have been documented in the HPI. ROS Other: All systems not noted in ROS Statement are negative. Past Medical History Past Medical History: Musculoskeletal Disorder Additional Past Medical History / Comment(s): chronic back pain radiating down legs History of Any Multi-Drug Resistant Organisms: None Reported Past Surgical History: Appendectomy, Orthopedic Surgery Additional Past Surgical History / Comment(s): cyst removed from tailbone, finger surgery Past Anesthesia/Blood Transfusion Reactions: No Reported Reaction Past Psychological History: Anxiety, Depression Smoking Status: Current every day smoker Past Alcohol Use History: Occasional Past Drug Use History: Marijuana - Past Family History Mother Family Medical History: No Reported History Father Family Medical History: Unable to Obtain General Exam Limitations: no limitations General appearance: alert, in no apparent distress Head exam: Present: atraumatic, normocephalic, normal inspection Eye exam: Present: normal appearance, PERRL, EOMI Pupils: Present: normal accommodation ENT exam: Present: normal exam Neck exam: Present: normal inspection, full ROM Respiratory exam: Present: normal lung sounds bilaterally Cardiovascular Exam: Present: regular rate, normal rhythm, normal heart sounds GI/Abdominal exam: Present: soft, tenderness (Epigastric tenderness), normal bowel sounds. Absent: distended, guarding, rebound Extremities exam: Present: normal inspection, full ROM Back exam: Present: normal inspection, full ROM, tenderness, paraspinal tenderness (Left paraspinal tenderness in the lumbar region), other (Positive leg raise test in the left lower extremity.) Neurological exam: Present: alert, oriented X3 Psychiatric exam: Present: normal affect, normal mood Skin exam: Present: warm, dry, intact, normal color Course Vital Signs 03/17/20 16:45 Temperature 98 F Pulse Rate 108 H Respiratory 18 Rate Blood Pressure 138/92 O2 Sat by Pulse 98 Oximetry Medical Decision Making - Medical Decision Making Patient is a 29-year-old male presenting to emergency Department with a chief complaint of abdominal pain and hip pain. Patient does have history of chronic back pain and that appears to be radiating from the left lumbar paraspinal region along the left lower extremity. No cauda equina. No red flags. Positive leg raise test on the left lower extremity. Patient was given a Lidoderm patch and Flexeril. Patient does report improvement of symptoms. Patient was offered Toradol but he refused. Patient is also complaining of epigastric abdominal pain that started early this morning. Does report nausea but no vomiting or diarrhea. Night sweats fevers or chills. No previous his tory of finger tetanus. CBC and CMP is unremarkable. Patient does have elevated lipase levels of 600, however it is not considered pancreatitis at this time. I suspect the elevated lipase levels or correlated to his epigastric tenderness which is secondary to his recent alcohol intake over the last 2 days. Patient will be discharged with a Tylenol 3 starter pack. Patient advised about the side effects of medication. Patient advised to stop drinking alcohol and stick to a clear liquid diet. Patient advised to start physical therapy after seeing his primary care regarding his lower extremity problems. Return parameters were thoroughly discussed with patient is understanding and agreeab le. Case discussed with physician. - Lab Data Result diagrams: 03/17/20 17:09 03/17/20 17:09 Lab Results 03/17/20 03/17/20 03/17/20 Range/Units 17:09 17: 17:19 WBC 9.9 (3.8-10.6) k/uL RBC 5.34 (4.30-5.90) m/uL Hgb 16.0 (13.0-17.5) gm/dL Hct 46.2 (39.0-53.0) % MCV 86.4 (80.0-100.0) fL MCH 29.9 (25.0-35.0) pg MCHC 34.5 (31.0-37.0) g/dL RDW 12.6 (11.5-15.5) % Plt Count 309 (150-450) k/uL Neutrophils % 55 % Lymphocytes % 35 % Monocytes % 5 % Eosinophils % 4 % Basophils % 0 % Neutrophils # 5.4 (1.3-7.7) k/uL Lymphocytes # 3.5 (1.0-4.8) k/uL Monocytes # 0.4 (0-1.0) k/uL Eosinophils # 0.4 (0-0.7) k/uL Basophils # 0.0 (0-0.2) k/uL Sodium 141 (137-145) mmol/L Potassium 3.8 (3.5-5.1) mmol/L Chloride 105 (98-107) mmol/L Carbon Dioxide 25 (22-30) mmol/L Anion Gap 11 mmol/L BUN 12 (9-20) mg/dL Creatinine 0.82 (0.66-1.25) mg/dL Est GFR (CKD-EPI)AfAm >90 (>60 ml/min/1.73 sqM) Est GFR (CKD-EPI)NonAf >90 (>60 ml/min/1.73 sqM) Glucose 97 (74-99) mg/dL Calcium 10.3 H (8.4-10.2) mg/dL Total Bilirubin 0.8 (0.2-1.3) mg/dL AST 26 (17-59) U/L ALT 27 (4-49) U/L Alkaline Phosphatase 68 (38-126) U/L Total Protein 8.6 H (6.3-8.2) g/dL Albumin 5.0 (3.5-5.0) g/dL Amylase 107 (30-110) U/L Lipase 624 H (23-300) U/L Urine Color Yellow Urine Appearance Clear (Clear) Urine pH 6.0 (5.0-8.0) Ur Specific [place] 1.022 (1.001-1.035) Urine Protein Trace H (Negative) Urine Glucose (UA) Negative (Negative) Urine Ketones Negative (Negative) Urine Blood Negative (Negative) Urine Nitrite Negative (Negative) Urine Bilirubin Negative (Negative) Urine Urobilinogen <2.0 (<2.0) mg/dL Ur Leukocyte Esterase Negative (Negative) Disposition Clinical Impression: Epigastric abdominal pain, Lumbar back pain with radiculopathy affecting left lower extremity Disposition: HOME SELF-CARE Condition: Stable Instructions (If sedation given, give patient instructions): Lumbar Radiculopathy (ED), Lower Back Exercises (ED), Clear Liquid Diet (ED) Additional Instructions: Take prescribed medication as directed. Follow clear liquid diet for the next few days. Avoid drinking alcohol. Follow up with primary care. Perform provided exercises. Return to emergency department if symptoms worsen. Is patient prescribed a controlled substance at d/c from ED?: No Referrals: Denzel Goldstein MD [Primary Care Provider] - 1-2 days Time of Disposition: 18:05
[2020-03-17 17:21] LABS: Basophils % (A) 0 %; Eosinophils # (A) 0.4 k/uL (0-0.7); Eosinophils % (A) 4 %; HCT 46.2 % (39.0-53.0); Lymphocytes # (A) 3.5 k/uL (1.0-4.8); Lymphocytes % (A) 35 %; MCH 29.9 pg (25.0-35.0); MCHC 34.5 g/dL (31.0-37.0); MCV 86.4 fL (80.0-100.0); Mean Platelet Volume 7.1; Monocytes # (A) 0.4 k/uL (0-1.0); Monocytes % (A) 5 %; Neutrophils # (A) 5.4 k/uL (1.3-7.7); Neutrophils % (A) 55 %; Platelet Count 309 k/uL (150-450); RBC 5.34 m/uL (4.30-5.90); RDW 12.6 % (11.5-15.5); WBC 9.9 k/uL (3.8-10.6)
[2020-03-17 17:26] LABS: Appearance,Urine Clear (Clear); Bilirubin,Urine Negative (Negative); Blood,Urine Negative (Negative); Color,Urine Yellow; Glucose,Urine (UA) Negative (Negative); Ketones,Urine Negative (Negative); Leukocyte Esterase,Urine Negative (Negative); Nitrite,Urine Negative (Negative); Protein,Urine Trace (Negative); Specific Gravity,Urine 1.022 (1.001-1.035); Urobilinogen,Urine <2.0 mg/dL (<2.0)
[2020-03-17 17:31] LABS: ALT 27 U/L (4-49); AST 26 U/L (17-59); African American GFR (CKD) >90 (>60 ml/min/1.73 sqM); Alkaline Phosphatase 68 U/L (38-126); Amylase 107 U/L (30-110); Anion Gap 11 mmol/L; Blood Urea Nitrogen 12 mg/dL (9-20); Calcium 10.3 mg/dL (8.4-10.2); Carbon Dioxide 25 mmol/L (22-30); Chloride 105 mmol/L (98-107); Glucose 97 mg/dL (74-99); Non-African American GFR(CKD) >90 (>60 ml/min/1.73 sqM); Potassium 3.8 mmol/L (3.5-5.1); Sodium 141 mmol/L (137-145); Total Bilirubin 0.8 mg/dL (0.2-1.3); Total Protein 8.6 g/dL (6.3-8.2)
[2020-03-17] MEDS ORDERED: ACET/COD 300 MG/30 MG STARTER PACK 6 TAB BTL PO STA (17:58)
== END 2020-03-17 18:16 | disposition home or self-care (01) ==
LOC: EC 16:41
DX: M54.16 Radiculopathy, lumbar region (principal); R10.13 Epigastric pain; G89.29 Other chronic pain; R11.0 Nausea; R74.8 Abnormal levels of other serum enzymes; F41.9 Anxiety disorder, unspecified; F17.200 Nicotine dependence, unspecified, uncomplicated; F32.9 Major depressive disorder, single episode, unspecified; Z79.899 Other long term (current) drug therapy; Z88.6 Allergy status to analgesic agent; Z98.890 Other specified postprocedural states
CPT/HCPCS: 36415; 80053; 82150; 83690; 85025; 81003; 99284; 96374; 96375; 96361; J2405